=== PATIENT | male | born 1950 | race Caucasian/White ===

== ENCOUNTER 2024-08-29 07:25 | Day surgery (SDC) | payer OTHER ==
[2024-08-29] VITALS (12 sets, daily range): BP systolic 107–143; BP diastolic 53–78; PULSE 59–73; RESP 15–16; TEMP 97.3–98.8
[~2024-08-29] VITALS: Ht 175.3 cm; Wt 95.3 kg
[~2024-08-29 07:25] MED LIST: ALLO300T2 PO; LEVO75CA5 PO; LOSA1TAB42 PO; ROSU10TA72 PO
[2024-08-29] MEDS: 0.9%NACL 1000ML 1,000 ML IV ONE (08:21)
[2024-08-29] MEDS ORDERED: proPOFol 10 MG/ML 20ML VIAL IV ONE (09:28)
--- NOTE | 2024-08-29 11:07 | NUR ---
FULL AND COMPLETE DISCHARGE INSTRUCTIONS GIVEN TO PATIENT AND FAMILY BOTH VERBALLY AND IN WRITING. VOICED UNDERSTANDING TO GI PROCEDURE PRECAUTIONS AND FOLLOW UP PIV REMOVED WITH CATHETER TIP INTACT. W/C WITH FAMILY TO POV TO HOME.
== END 2024-08-29 11:00 | disposition home or self-care (01) ==
LOC: ENDO 07:25 → DAH 07:25 → ENDO 11:00
PROVIDERS: ATTEND Internal Medicine Gastroenterology
DX: Z12.11 Encounter for screening for malignant neoplasm of colon (principal); D12.2 Benign neoplasm of ascending colon; K57.30 Diverticulosis of large intestine without perforation or abscess without bleeding; I10 Essential (primary) hypertension; E03.9 Hypothyroidism, unspecified; K74.02 Hepatic fibrosis, advanced fibrosis; Z98.890 Other specified postprocedural states
CPT/HCPCS: 45380; J7030; J2704; A4620; A4215; J3490